=== PATIENT | male | born 1975 | race Caucasian/White ===

== ENCOUNTER 2018-02-04 08:26 | Emergency (ER) | payer SELFPAY ==
[~2018-02-04] VITALS: Ht 177.8 cm; Wt 86.2 kg
[2018-02-04] MEDS: VANCOMYCIN IV 1,000 MG in IV DEXTROSE 5% 250 ML IV ONE ×2 (08:30→09:00)
[2018-02-04] MEDS ORDERED: ALBU0.63 NEB (08:43)
[2018-02-04] MEDS ORDERED: APRESOLINE PO (08:43)
[2018-02-04] MEDS ORDERED: LISI30TA4 PO (08:43)
[2018-02-04] MEDS ORDERED: FLUO40CA8 PO (08:43)
--- NOTE | 2018-02-04 08:45 | NUR ---
3 hospital-provided drinks given per patient's request. Patient is for discharge after the IV Vancomycin.
[2018-02-04] MEDS ORDERED: VANCOMYCIN IV 200 ML ONE (08:56)
--- NOTE | 2018-02-04 10:29 | NUR ---
IV removed. Catheter intact and site benign. Pressure and 4x4 gauze applied to site. No bleeding noted. Patient discharged to home in stable conditon & steady gait. Written and verbal after care instructions given to patient. Patient verbalizes understanding of instructions.
== END 2018-02-04 10:30 | disposition home or self-care (01) ==
LOC: ER 08:26
DX: L03.114 Cellulitis of left upper limb (principal); I10 Essential (primary) hypertension; J45.909 Unspecified asthma, uncomplicated; Z79.899 Other long term (current) drug therapy
CPT/HCPCS: 96365; 99284; A4663; J3370

== ENCOUNTER 2018-03-05 21:02 | Emergency (ER) | payer SELFPAY ==
[~2018-03-05] VITALS: Ht 177.8 cm; Wt 90.7 kg
[~2018-03-05 21:02] MED LIST: ALBU0.63 NEB; APRESOLINE PO; FLUO40CA8 PO; LISI30TA4 PO
--- NOTE | 2018-03-05 21:28 | NUR ---
DR DEBBY TAFOYA MD AT BEDSIDE FOR MSE.
[2018-03-05] MEDS ORDERED: TDAP DIPH,PERTUSS,TET VAC/PF 0.5 ML DISP.SYRIN IM ONE ×2 (21:30→21:43)
[2018-03-05] MEDS ORDERED: KETOROLAC TROMETHAMINE 30 MG INJ IM ONE (21:30)
[2018-03-05] MEDS ORDERED: KETOROLAC TROMETHAMINE 30 MG INJ ONE (21:43)
--- NOTE | 2018-03-05 21:50 | NUR ---
DR GUARDADO AT BEDSIDE FOR I&D OF ABSCESS
[2018-03-05] MEDS ORDERED: SULFAMETH/TRIMETH 800/160 MG TABLET PO ONE (22:00)
[2018-03-05] MEDS ORDERED: CEPHALEXIN MONOHYDRATE 500 MG CAPSULE PO ONE (22:00)
[2018-03-05] MEDS ORDERED: CEPHALEXIN MONOHYDRATE 500 MG CAPSULE ONE (22:06)
[2018-03-05] MEDS ORDERED: SULFAMETH/TRIMETH 800/160 MG TABLET ONE (22:06)
--- NOTE | 2018-03-05 22:24 | NUR ---
Patient discharged to home in stable conditon. Written and verbal after care instructions given. Patient verbalizes understanding of instructions. Pt ambulated from ER w/ steady gait. No distress noted. Pt took all personal belongings.
[2018-03-05 22:27] VITALS: BP 127/84
== END 2018-03-05 22:28 | disposition home or self-care (01) ==
LOC: ER 21:07
DX: L02.511 Cutaneous abscess of right hand (principal); I10 Essential (primary) hypertension; J45.909 Unspecified asthma, uncomplicated; F17.200 Nicotine dependence, unspecified, uncomplicated; F11.10 Opioid abuse, uncomplicated; Z79.899 Other long term (current) drug therapy
CPT/HCPCS: 10060; 87070; 87077; 87186; 90471; 90715; 96372; 99284; A4663; J1885

== ENCOUNTER 2018-03-07 20:51 | Emergency (ER) | payer SELFPAY ==
[~2018-03-07] VITALS: Ht 177.8 cm; Wt 86.2 kg
--- NOTE | 2018-03-07 21:11 | NUR ---
DR. LAVINIA TAFOYA MD AT BEDSIDE FOR MSE.
[2018-03-07] MEDS ORDERED: AMOXICILLIN-CLAVUL 875-125MG TABLET PO ONE (21:58)
[2018-03-07] MEDS ORDERED: SULFAMETH/TRIMETH 800/160 MG TABLET PO ONE (21:58)
[2018-03-07] MEDS ORDERED: AMOXICILLIN-CLAVUL 875-125MG TABLET ONE ×2 (22:17→22:18)
--- NOTE | 2018-03-07 22:17 | NUR ---
Patient discharged to home in stable conditon. Written and verbal after care instructions given. Patient verbalizes understanding of instructions.
[2018-03-07 22:18] VITALS: BP 134/81
[2018-03-07] MEDS ORDERED: SULFAMETH/TRIMETH 800/160 MG TABLET ONE (22:18)
== END 2018-03-07 22:18 | disposition home or self-care (01) ==
LOC: ER 20:53
DX: L02.511 Cutaneous abscess of right hand (principal); Z48.01 Encounter for change or removal of surgical wound dressing; I10 Essential (primary) hypertension; J45.909 Unspecified asthma, uncomplicated; F17.200 Nicotine dependence, unspecified, uncomplicated; F11.10 Opioid abuse, uncomplicated; Z79.899 Other long term (current) drug therapy
CPT/HCPCS: 99283; A4217; A4663

== ENCOUNTER 2018-03-09 21:31 | Emergency (ER) | payer SELFPAY ==
[~2018-03-09] VITALS: Ht 177.8 cm; Wt 79.8 kg
--- NOTE | 2018-03-09 21:55 | NUR ---
DR LANG INTO EVAL PATIENT
[2018-03-09] MEDS ORDERED: NEOMY/BACITRA/POLYMYXIN B OINT UD PACKET TP ONE ×2 (22:00→22:02)
--- NOTE | 2018-03-09 22:04 | NUR ---
Patient discharged to home in stable conditon. Written and verbal after care instructions given. Patient verbalizes understanding of instructions. wALKED OUT OF ER WITH STEADY GAIT
== END 2018-03-09 22:06 | disposition home or self-care (01) ==
LOC: ER 21:33
DX: Z48.01 Encounter for change or removal of surgical wound dressing (principal); L02.511 Cutaneous abscess of right hand; J45.909 Unspecified asthma, uncomplicated; Z79.899 Other long term (current) drug therapy
CPT/HCPCS: A4663